=== PATIENT | female | born 1980 | race Caucasian/White ===

== ENCOUNTER 2022-04-20 07:29 | Day surgery (SDC) | payer OTHER ==
[~2022-04-20] VITALS: Ht 152.4 cm; Wt 72.6 kg
[~2022-04-20 07:29] MED LIST: DOCU-299 PO; HYDR-5122 PO; IBUP-974 PO; ONDA-188 PO
[2022-04-20] MEDS ORDERED: diphenhydrAMINE 50 MG/ML VIAL ONE (08:19)
[2022-04-20] MEDS ORDERED: fentaNYL citrate 0.05 MG/ML VIAL ONE (08:19)
[2022-04-20] MEDS ORDERED: MIDAZOLAM 5 MG/5 ML VIAL ONE (08:20)
[2022-04-20] MEDS ORDERED: LIDOCAINE 2% 100 MG/5 ML UJET TP ONE (08:20)
[2022-04-20] MEDS ORDERED: MIDAZOLAM 5 MG/5 ML VIAL IV ONE (12:55)
[2022-04-20] MEDS ORDERED: fentaNYL citrate 0.05 MG/ML VIAL IVP ONE (12:55)
[2022-04-20] MEDS ORDERED: diphenhydrAMINE 50 MG/ML VIAL IVP ONE (12:55)
== END 2022-04-20 09:30 | disposition home or self-care (01) ==
LOC: MDS 07:29 → MMU 07:29 → MDS 09:30
PROVIDERS: ATTEND Internal Medicine Gastroenterology
DX: K62.5 Hemorrhage of anus and rectum (principal); K64.8 Other hemorrhoids; Z90.49 Acquired absence of other specified parts of digestive tract; Z20.822 Contact with and (suspected) exposure to COVID-19
CPT/HCPCS: 45378; 87426; J1200; J2250; J3010; U0003